=== PATIENT | female | born 1965 | race Caucasian/White ===

== ENCOUNTER 2025-01-07 12:36 | Outpatient (RCR) | payer BC, SELFPAY | END 2025-02-05 23:59 | disposition home or self-care (01) | LOC: SPT 12:36 | PROVIDERS: Visit Provider Nurse Practitioner Family | DX: R32 Unspecified urinary incontinence (principal) | CPT/HCPCS: 97110; 97161; 97530 ==

== ENCOUNTER 2025-02-06 05:00 | Outpatient (RCR) | payer BC, SELFPAY | END 2025-03-08 23:59 | disposition home or self-care (01) | LOC: SPT 05:00 | PROVIDERS: Visit Provider Nurse Practitioner Family | DX: N39.41 Urge incontinence (principal); K59.00 Constipation, unspecified; R35.0 Frequency of micturition | CPT/HCPCS: 97110 ==